=== PATIENT | male | born 1960 | race African-American/Black ===

== ENCOUNTER 2019-02-06 11:46 | Emergency (ER) | payer OTHER, SELFPAY ==
[2019-02-06] MEDS ORDERED: Lidocaine 1% w/Epinephrine 1:100K 20 ML VIAL ONE (11:59)
[2019-02-06] MEDS ORDERED: Adacel (T-DAP) 0.5 ML SYRINGE ONE (11:59)
--- NOTE | 2019-02-06 12:37 | RAD ---
RIGHT FOREARM 2 VIEWS: Date: 02/06/19 HISTORY: Laceration on windield, possible foreign body, right forearm pain. FINDINGS/IMPRESSION: The right radius and ulna are intact. No radiopaque foreign body seen. POS: [facility]
== END 2019-02-06 13:26 | disposition home or self-care (01) ==
LOC: ERS 11:46
DX: S51.811A Laceration without foreign body of right forearm, initial encounter (principal); W25.XXXA Contact with sharp glass, initial encounter
CPT/HCPCS: 12002; 90471; 90715; J2001

== ENCOUNTER 2019-05-21 12:14 | Emergency (ER) | payer SELFPAY ==
[2019-05-21] MEDS ORDERED: predniSONE 20 MG TAB ONE (13:24)
[2019-05-21] MEDS ORDERED: Famotidine 20 MG TAB ONE (13:24)
== END 2019-05-21 13:49 | disposition home or self-care (01) ==
LOC: ERS 12:14
DX: L50.9 Urticaria, unspecified (principal)
CPT/HCPCS: 99283; J7512